=== PATIENT | male | born 1945 | race Caucasian/White ===

== ENCOUNTER 2023-01-13 08:00 | Outpatient (REF) | payer OTHER, SELFPAY ==
[2023-01-13 11:42] LABS: Anion Gap 12 (12-20); Blood Urea Nitrogen 15 mg/dL (9-16); Calcium 9.7 mg/dL (8.4-10.2); Carbon Dioxide 28 mmol/L (22-29); Chloride 105 mmol/L (96-108); Estimated Glomerular Filt Rate > 60; Glucose Random 144 mg/dL (60-115); Potassium 4.5 mmol/L (3.3-5.1); Sodium 140 mmol/L (135-145)
== END 2023-01-13 08:01 | disposition home or self-care (01) ==
LOC: HO.HHCL 08:00
PROVIDERS: Visit Provider Internal Medicine Geriatric Medicine
DX: E11.9 Type 2 diabetes mellitus without complications (principal); I10 Essential (primary) hypertension
CPT/HCPCS: 36415; 80048

== ENCOUNTER 2023-06-14 08:09 | Outpatient (REF) | payer OTHER, SELFPAY ==
[2023-06-14 14:00] LABS: Alanine Aminotransferase 19 U/L (0-40); Albumin Level 4.3 g/dL (3.5-5.0); Alkaline Phosphatase 73 U/L (39-117); Anion Gap 14 (12-20); Aspartate Amino Transferase 22 U/L (5-37); Bilirubin Total 0.8 mg/dL (0.0-1.0); Blood Urea Nitrogen 13 mg/dL (9-16); Calcium 9.7 mg/dL (8.4-10.2); Carbon Dioxide 26 mmol/L (22-29); Chloride 102 mmol/L (96-108); Estimated Glomerular Filt Rate > 60; Glucose Random 143 mg/dL (60-115); Potassium 4.1 mmol/L (3.3-5.1); Sodium 138 mmol/L (135-145); Total Protein 8.3 g/dL (6.5-8.0)
[2023-06-14 14:07] LABS: Creatinine Urine 45.97 mg/dL; Microalbum/Creatinine Ratio Ur 102.2 ug/mg cr (<30)
== END 2023-06-14 08:10 | disposition home or self-care (01) ==
LOC: HO.HHCL 08:09
PROVIDERS: Visit Provider Internal Medicine Geriatric Medicine
DX: E11.9 Type 2 diabetes mellitus without complications (principal)
CPT/HCPCS: 36415; 80053; 82043; 82570

== ENCOUNTER 2023-09-16 08:30 | Outpatient (REF) | payer OTHER, SELFPAY ==
[2023-09-16 14:46] LABS: Anion Gap 15 (12-20); Blood Urea Nitrogen 10 mg/dL (9-16); Carbon Dioxide 25 mmol/L (22-29); Chloride 104 mmol/L (96-108); Estimated Glomerular Filt Rate > 60; Glucose Random 109 mg/dL (60-115); Potassium 4.4 mmol/L (3.3-5.1); Sodium 140 mmol/L (135-145)
[2023-09-16 14:47] LABS: Cholesterol 154 mg/dL (<200); HDL Cholesterol 52 mg/dL (>40); LDL Cholesterol Calculated 84 mg/dL (<100); Triglycerides 93 mg/dL (<150)
[2023-09-16 15:27] LABS: Estimated Average Glucose 151 mg/dL; Hemoglobin A1c % 6.9 % (<6.0)
[2023-09-16 20:33] LABS: Creatinine Urine 119.26 mg/dL; Microalbum/Creatinine Ratio Ur 38.5 ug/mg cr (<30)
== END 2023-09-16 08:31 | disposition home or self-care (01) ==
LOC: HO.HHCL 08:30
PROVIDERS: Visit Provider Internal Medicine Geriatric Medicine
DX: E11.29 Type 2 diabetes mellitus with other diabetic kidney complication (principal); R80.9 Proteinuria, unspecified; I10 Essential (primary) hypertension
CPT/HCPCS: 36415; 80048; 80061; 82043; 82570; 83036

== ENCOUNTER 2024-08-03 08:10 | Outpatient (REF) | payer MEDICARE, SELFPAY ==
--- OUTSIDE RECORDS SUMMARY | 2024-08-03 08:13 | XMS_ITS | Encounter Summary ---
Author Organization [employer] Address [address] [facility] [address] [place] [address] Care Team Providers Care Gutter Mouth Cutter Name Role Phone Name, Raffi RAYO Primary Care Provider [phone] Reason for Visit * Reason Comments Med Refill Encounter Details Date Type Department Care Team ([facility] st Contact Info) Description 07/28/2024 Refill [facility] [address] [place], [place] [phone] Name, MD Raffi [address] [place] [address] Diabetes mellitus without complication (CMS/HCC); Hypertension, unspecified type Social History Tobacco Use Types Packs/Day Years Used Date Smoking Tobacco: Never Smokeless Tobacco: Never Alcohol Use Standard Drinks/Week Comments Yes 14 (1 standard drink = 0.6 oz pu re alcohol) 2/per day Depression Answer Date Recorded Patient Health Questionnaire-9 Score 4 05/08/2024 Patient Health Questionnaire-9 Score 4 05/08/2024 Last PHQ-9: Questionnaire Data Not on file 0 05/08/2024 Housing Stability Answer Date Recorded What is your housing situation today? I have ciarra sing 09/20/[address] you li ve. Do you have problems with any of the following? None of the above 09/20/2023 Food Insecurity Answer Date Recorded Within the past 12 months, y ou worried that your food would run out before you got money to buy more: Never True 09/20/2023 Within the past 12 months,th e food you bought just didn't last and you didn't have enough money to get more: Never True Transportation Answer Date Recorded In the past 12 months, has l ack of transportation kept you from medical appts, meetings, work or from getting things needed for daily living? No 09/20/2023 Utilities Answer Date Recorded In the past 12 months, has t he electric, gas, oil or water company threatened to shut off services in your home? No 09/20/2023 Depression Answer Date Recorded Patient Health Questionnaire-2 Score 3 05/08/2024 Internet Access Answer Date Recorded Internet Access Q1 No 10/31/2023 Internet Access Q2 I do not want or need it 03/2023 Sex and Gender Information Value Date Recorded Sex Assigned at Male 12/28/2021 10:17 AM EDT Legal Sex Male 10:17 AM EDT Gender Identity Male 12/28/2021 10:17 AM EDT Sexual Orientation Straight 12/28/2021 10 :17 AM EDT documented as of this encounter Plan of Treatment Upcoming Encounters Date Type Department Care Team (Late st Contact Info) Description 09/13/2024 1:00 PM EDT Office Visit [facility] [address] [place] [address] Kvng, Diana, OD [address] [place] [address] documented as of this encounter Visit Diagnoses Diagnosis Diabetes mellitus without complication (CMS/HCC) Type II or unspecified type diabetes mellitus without mention of complication, not stated as uncontrolled Hypertension, unspecified type documented in this encounter Additional Health Concerns Assessment Noted Time PHQ-9 Depression Total Score: 4 05/09/19 25 9:14 AM EDT documented as of this encounter Care Teams Gutter Mouth Cutter Relationship Specialty Start Date End Date Name, MD Raffi [address] [place] [address] PCP - General Family Medicine 06/04/15 documented as of this encounter
[2024-08-03 11:04] LABS: MANUAL DIFF FLAG NO
[2024-08-03 11:29] LABS: Basophils Absolute Auto 0.1 X10*3/uL (0.0-0.2); Basophils Percent Auto 1.2 % (0-2); Eosinophils Absolute Auto 0.5 X10*3/uL (0.0-0.4); Eosinophils Percent Auto 7.4 % (0-4); Hematocrit 41.1 % (42.0-52.0); Hemoglobin 13.3 g/dl (14.0-18.0); Imm Gran Abs Auto 0.02 X10*3/uL (0.00-0.03); Imm Gran Pct Auto 0.3 % (0.0-0.4); Lymphocytes Absolute Auto 2.9 X10*3/uL (1.2-4.9); Lymphocytes Percent Auto 42.7 % (20-40); Mean Corpuscular HGB Conc 32.4 g/dl (31.0-36.0); Mean Corpuscular Hemoglobin 26.5 pg (27.0-33.0); Mean Platelet Volume 10.5 fL (9.4-12.4); Monocytes Absolute Auto 0.7 X10*3/uL (0.1-1.2); Monocytes Percent Auto 9.9 % (2-11); Neutrophils Absolute Auto 2.6 x10*3/uL (2.0-8.3); Neutrophils Percent Auto 38.5 % (45-73); Platelet Count 220 X10*3/uL (160-400); Red Blood Count 5.01 X10*6/uL (4.60-5.80); Red Cell Distribution Width 13.8 % (11.0-16.0); White Blood Count 6.8 X10*3/uL (4.8-10.8)
[2024-08-03 12:08] LABS: Alanine Aminotransferase 14 U/L (0-40); Alkaline Phosphatase 72 U/L (39-117); Anion Gap 11 (12-20); Aspartate Amino Transferase 24 U/L (5-37); Bilirubin Total 0.8 mg/dL (0.0-1.0); Blood Urea Nitrogen 18 mg/dL (9-16); Calcium 9.7 mg/dL (8.4-10.2); Carbon Dioxide 26 mmol/L (22-29); Chloride 109 mmol/L (96-108); Cholesterol 135 mg/dL (<200); Estimated Glomerular Filt Rate > 60; Glucose Random 117 mg/dL (60-115); HDL Cholesterol 48 mg/dL (>40); LDL Cholesterol Calculated 71 mg/dL (<100); Potassium 4.4 mmol/L (3.3-5.1); Sodium 142 mmol/L (135-145); Total Protein 7.3 g/dL (6.5-8.0); Triglycerides 81 mg/dL (<150)
[2024-08-03 12:15] LABS: Creatinine Urine 57.68 mg/dL; Microalbum/Creatinine Ratio Ur 20.8 ug/mg cr (<30)
== END 2024-08-03 08:11 | disposition home or self-care (01) ==
LOC: HO.HHCL 08:10
PROVIDERS: Visit Provider Internal Medicine Geriatric Medicine
DX: I10 Essential (primary) hypertension (principal); E11.29 Type 2 diabetes mellitus with other diabetic kidney complication; R80.9 Proteinuria, unspecified
CPT/HCPCS: 36415; 80053; 80061; 82043; 82570; 85025

== ENCOUNTER 2024-11-14 14:29 | Outpatient (REF) | payer MEDICARE, SELFPAY ==
--- OUTSIDE RECORDS SUMMARY | 2024-11-14 14:00 | XMS_ITS | Encounter Summary ---
Author Organization [employer] Address [address] [facility] 7[address] [place] [address] Care Team Providers Care Makeup Artistry Instructor Name Role Phone Name, Raffi RAYO Primary Care Provider [phone] Reason for Visit * Reason Comments Diabetes Encounter Details Date Type Department Care Team ([facility] st Contact Info) Description 11/14/2024 2:00 PM EDT Office Visit [facility] MEDIC[facility] [address] [place], [place] [phone] Name, MD Raffi [address] [place] [address] Type 2 diabetes mellitus with proteinuria (CMS/HCC) (CMS/HCC) (Primary Dx); Need for hepatitis C screening test Social History Tobacco Use Types Packs/Day Years Used Date Smoking Tobacco: Never Smokeless Tobacco: Never Tobacco Cessation:Counseling Given: Not Answered Alcohol Use Standard Drinks/Week Comments Yes 14 (1 standard drink = 0.6 oz pu re alcohol) 2/per day Depression Answer Date Recorded Patient Health Questionnaire-9 Score 4 05/08/2024 Patient Health Questionnaire-9 Score 4 05/08/2024 Last PHQ-9: Questionnaire Data Not on file 0 05/08/2024 Housing Stability Answer Date Recorded What is your housing situation today? I have ciarra chester 11/14/[address] you li ve. Do you have problems with any of the following? None of the above 11/14/2024 Food Insecurity Answer Date Recorded Within the past 12 months, y ou worried that your food would run out before you got money to buy more: Never True 11/14/2024 Within the past 12 months,th e food you bought just didn't last and you didn't have enough money to get more: Never True Transportation Answer Date Recorded In the past 12 months, has l ack of transportation kept you from medical appts, meetings, work or from getting things needed for daily living? No 11/14/2024 Utilities Answer Date Recorded In the past 12 months, has t he electric, gas, oil or water company threatened to shut off services in your home? No 11/14/2024 Depression Answer Date Recorded Patient Health Questionnaire-2 Score 3 05/08/2024 Internet Access Answer Date Recorded Internet Access Q1 Yes 11/14/2024 Internet Access Q2 Not on file 11/14/2024 Sex and Gender Information Value Date Recorded Sex Assigned at Male 12/28/2021 10:17 AM EDT Legal Sex Male 10:17 AM EDT Gender Identity Male 12/28/2021 10:17 AM EDT Sexual Orientation Straight 12/28/2021 10 :17 AM EDT documented as of this encounter Last Filed Vital Signs Vital Sign Reading Time Taken Comments Blood Pressure 112/58 11/14/2024 2:14 PM EDT Pulse 64 11/14/2024 2:14 PM EDT Temperature 36.1 C (97 F) 11/14/2024 2:14 PM EDT Respiratory Rate 12 11/14/2024 2:14 PM EDT Oxygen Saturation 98% 11/14/2024 2:14 PM EDT Inhaled Oxygen Concentration - - Weight 70.8 kg (156 lb) 11/14/2024 2:14 PM EDT Height 167.6 cm (5' 6 ) 11/14/2024 2:14 PM EDT Body Mass Index 25.18 11/14/2024 2:14 PM EDT documented in this encounter Progress Notes * Raffi Knight, - 11/14/2024 2:00 PM EDT Subjective Patient ID: Mati Toledo is a 79 y.o. male who presents for Diabetes. Patient comes for a follow-up visit and is doing well. He did not bring his glucose meter but his hemoglobin A1c is excellent. Blood pressure is well- controlled. He brings record of blood pressure athome that also shows good control. He had a visiting nurse go to his house and he had a normal minicog testing. We discussed the favorable results of the blood work he had done back in July. He has been more active around the house and the yard and he is congratulated and encouraged to continue. Review of Systems Constitutional: Negative for chills, fatigue and fever. HENT: Negative for sore throat. Respiratory: Negative for cough, chest tightness and shortness of breath. Cardiovascular: Negative for chest pain, palpitations and leg swelling. Gastrointestinal: Negative for abdominal pain and blood in stool. Objective Vitals: 11/14/24 1414 BP: 112/58 BP Location: Left arm Patient Position: Sitting BP Cuff Size: Adult Pulse: 64 Resp: 12 Temp: 97 ??F (36.1 ??C) TempSrc: Temporal SpO2: 98% Weight: 156 lb (70.8 kg) Height: 5' 6 (1.676 m) Physical Exam Constitutional: Appearance: Normal appearance. Cardiovascular: Rate and Rhythm: Normal rate and regular rhythm. Heart sounds: No murmur heard. Pulmonary: Effort: Pulmonary effort is normal. No respiratory distress. Breath sounds: No wheezing, rhonchi or rales. Abdominal: Palpations: Abdomen is soft. Tenderness: There is no abdominal tenderness. Musculoskeletal: Right lower leg: No edema. Left lower leg: No edema. Neurological: Mental Status: He is alert. Latest Reference Range & Units 08/03/24 08:12 Glucose 60 - 115 mg/dL 117 (H) Urea Nitrogen (BUN) 9 - 16 mg/dL 18 (H) Creatinine, Serum 0.5 - 1.4 mg/dL 1.09 Sodium 135 - 145 mmol/L 142 Potassium 3.3 - 5.1 mmol/L 4.4 Chloride 96 - 108 mmol/L 109 (H) Carbon Dioxide 22 - 29 mmol/L 26 Calcium 8.4 - 10.2 mg/dL 9.7 Albumin Level 3.5 - 5.0 g/dL 4.0 Bilirubin, Total 0.0 - 1.0 mg/dL 0.8 AST 5 - 37 U/L 24 ALT 0 - 40 U/L 14 Anion Gap 12 - 20 11 (L) Total Protein 6.5 - 8.0 g/dL 7.3 Cholesterol <200 mg/dL 135 HDL Cholesterol >40 mg/dL 48 LDL Cholesterol Calculated <100 mg/dL 71 Triglycerides <150 mg/dL 81 Red Blood Count 4.60 - 5.80 X10*6/uL 5.01 Hemoglobin 14.0 - 18.0 g/dl 13.3 (L) Hematocrit 42.0 - 52.0 % 41.1 (L) Mean Corpuscular Volume 80.0 - 98.0 fL 82.0 Mean Corpuscular Hemoglobin 27.0 - 33.0 pg 26.5 (L) Mean Corpuscular HGB Conc 31.0 - 36.0 g/dl 32.4 Red Cell Distribution Width 11.0 - 16.0 % 13.8 Platelet Count 160 - 400 X10*3/uL 220 Eosinophils Percent Auto 0 - 4 % 7.4 (H) Lymphocytes Absolute Auto 1.2 - 4.9 X10*3/uL 2.9 Basophils Absolute Auto 0.0 - 0.2 X10*3/uL 0.1 Monocytes Absolute Auto 0.1 - 1.2 X10*3/uL 0.7 Neutrophils Absolute Auto 2.0 - 8.3 x10*3/uL 2.6 Neutrophils Percent Auto 45 - 73 % 38.5 (L) Basophils Percent Auto 0 - 2 % 1.2 Eosinophils Absolute Auto 0.0 - 0.4 X10*3/uL 0.5 (H) Lymphocytes Percent Auto 20 - 40 % 42.7 (H) Monocytes Percent Auto 2 - 11 % 9.9 Imm Gran Abs Auto 0.00 - 0.03 X10*3/uL 0.02 Imm Gran Pct Auto 0.0 - 0.4 % 0.3 Microalbumin Urine mg/L 12.0 Alkaline Phosphatase 39 - 117 U/L 72 Creatinine, Urine mg/dL 57.68 Estimated Glomerular Filt Rate >60 Mean Platelet Volume 9.4 - 12.4 fL 10.5 Microalbum Creatinine Ratio Ur <30 ug/mg cr 20.8 NRBC Abs Auto 0.0 - 0.012 X10*3/uL 0.000 NRBC Pct Auto 0.0 - 0.2 /100WBC 0.0 White Blood Count 4.8 - 10.8 X10*3/uL 6.8 (H): Data is abnormally high (L): Data is abnormally low Lab Results Component Value Date HGBA1C 6.3 (A) 11/14/2024 HGBA1C 6.8 (A) 05/08/2024 HGBA1C 6.9 (H) 09/16/2023 HGBA1C 7.8 (A) 04/07/2023 HGBA1C 7.4 (A) 12/30/2022 HGBA1C 7.2 (A) 09/02/2022 HGBA1C 7.1 (A) 03/02/2022 Assessment/Plan Diagnoses and all orders for this visit: Type 2 diabetes mellitus with proteinuria (CMS/HCC) ([facility]) Comments: Well controlled, continue current meds, avoid sweets, regular physical activity, check blood work listed below. I recommended to reschedule his appt for eye exam. Orders: - POCT Glucose - POCT Hgb A1c Need for hepatitis C screening test - Hepatitis C Antibody with Reflex to HCV, RNA, Quantitative, Real-Time PCR; Future documented in this encounter Plan of Treatment Scheduled Orders Name Type Priority Associated Diagnoses Orde r Schedule Hepatitis C Antibody with Reflex to HCV, RNA, Quantitative, Real-Time PCR Lab Routine Need for hepatitis C screening test Expected: 11/14/2024, Expires: 11/14/2025 documented as of this encounter Procedures Procedure Name Priority Date/Time Associated Diagnosis Comments POCT GLYCATED HEMOGLOBIN, TOTAL Routine 11/14/2024 2:16 PM EDT Type 2 diabetes mellitus with proteinuria (CMS/HCC) ([facility]) POCT GLUCOSE Routine 11/14/2024 2:16 PM EDT Type 2 diabetes mellitus with proteinuria (CMS/HCC) ([facility]) documented in this encounter Results * (ABNORMAL) POCT Hgb A1c (11/14/2024 2:16 PM EDT) Hemoglobin A1C 6.3(A) 4.0 - 5.7 % QC Media Lot # [id number] Lot# Expiration Date [id number] Blood 11/14/2024 2:16 PM EDT Raffi Knight MD POINT OF CARE TEST ENTER/EDIT OR DERABLES Final Result * POCT Glucose (11/14/2024 2:16 PM EDT) Glucose Blood, POC 116 60 - 200 mg/dL QC Media Lot # [id number] Lot# Expiration Date Blood Capillary blood specimen / Unknown 11/14/2024 2:16 PM EDT Raffi Knight MD POINT OF CARE TEST ENTER/EDIT OR DERABLES Final Result documented in this encounter Visit Diagnoses Diagnosis Type 2 diabetes mellitus with proteinuria (CMS/HCC) (CMS/HCC)- Primary Need for hepatitis C screening test Special screening examination for other specified viral diseases documented in this encounter Additional Health Concerns Assessment Noted Time PHQ-9 Depression Total Score: 4 05/09/19 25 9:14 AM EDT documented as of this encounter Care Teams Makeup Artistry Instructor Relationship Specialty Start Date End Date Name, MD Raffi [address] [place] [address] PCP - General Family Medicine 06/04/15 documented as of this encounter
--- OUTSIDE RECORDS SUMMARY | 2024-11-14 18:13 | XMS_ITS | Encounter Summary ---
Author Organization [employer] Address [address] [facility] [address]t [place] [address] Care Team Providers Care Hyperbaric Technician Name Role Phone Name, Raffi RAYO Primary Care Provider [phone] Reason for Visit * Reason Comments Med Refill Encounter Details Date Type Department Care Team ([facility] st Contact Info) Description 07/07/2023 Refill [facility] [address] [place], [place] [phone] Name, MD Raffi [address] [place] [address] Diabetes mellitus without complication ([facility]/HCC) Social History Tobacco Use Types Packs/Day Years Used Date Smoking Tobacco: Never Smokeless Tobacco: Never Alcohol Use Standard Drinks/Week Comments Yes 14 (1 standard drink = 0.6 oz pu re alcohol) 2/per day Depression Answer Date Recorded Patient Health Questionnaire-9 Score 0 04/07/2023 Patient Health Questionnaire-9 Score 0 04/07/2023 Last PHQ-9: Questionnaire Data Not on file 0 04/07/2023 Housing Stability Answer Date Recorded What is your housing situation today? I have ciarra chester 12/30/[address] you li ve. Do you have problems with any of the following? None of the above 12/30/2022 Food Insecurity Answer Date Recorded Within the past 12 months, y ou worried that your food would run out before you got money to buy more: Never True 12/30/2022 Within the past 12 months,th e food you bought just didn't last and you didn't have enough money to get more: Never True 03/2022 Transportation Answer Date Recorded In the past 12 months, has l ack of transportation kept you from medical appts, meetings, work or from getting things needed for daily living? No 12/30/2022 Utilities Answer Date Recorded In the past 12 months, has t he electric, gas, oil or water company threatened to shut off services in your home? No 12/30/2022 Depression Answer Date Recorded Patient Health Questionnaire-2 Score 0 04/07/2023 Sex and Gender Information Value Date Recorded Sex Assigned at Male 12/28/2021 10:17 AM EDT Legal Sex Male 10:17 AM EDT Gender Identity Male 12/28/2021 10:17 AM EDT Sexual Orientation Straight 12/28/2021 10 :17 AM EDT documented as of this encounter Plan of Treatment Not on file documented as of this encounter Visit Diagnoses Diagnosis Diabetes mellitus without complication (CMS/HCC) Type II or unspecified type diabetes mellitus without mention of complication, not stated as uncontrolled documented in this encounter Additional Health Concerns Assessment Noted Time PHQ-9 Depression Total Score: 0 04/07/19 24 11:13 AM EST documented as of this encounter Care Teams Hyperbaric Technician Relationship Specialty Start Date End Date Name, MD Raffi [address] [place] [address] PCP - General Family Medicine 06/04/15 documented as of this encounter
--- OUTSIDE RECORDS SUMMARY | 2024-11-14 18:13 | XMS_ITS | Encounter Summary ---
Author Organization [employer] Address [address] [facility] [address] [place] [address] Care Team Providers Care Recreation Establishment Manager Name Role Phone Name, Raffi RAYO Primary Care Provider [phone] Reason for Visit * Reason Comments Med Refill Encounter Details Date Type Department Care Team ([facility] st Contact Info) Description 02/11/2024 Refill [facility] MED[facility] [address] [place], [place] [phone] Name, MD Raffi [address] [place] [address] Diabetes mellitus without complication (CMS/HCC); Hypertension, unspecified [...] is your housing situation today? I have ciarradacia chester 09/20/[address] you li [...] Recorded Patient Health Questionnaire-2 Score 0 04/07/2023 Internet Access Answer Date Recorded Internet Access [...] Visit Diagnoses Diagnosis Diabetes mellitus without complication (CMS/[facility]) Type II or unspecified type diabetes mellitus without mention of complication, not stated as uncontrolled Hypertension, unspecified type documented in this encounter Additional Health Concerns Assessment Noted Time PHQ-9 Depression Total Score: 0 04/07/19 24 11:13 AM EST documented as of this encounter Care Teams Recreation Establishment Manager Relationship Specialty Start Date End Date Name, MD Raffi [address] [place] [address] PCP - General Family Medicine 06/04/15 documented as of this encounter
--- OUTSIDE RECORDS SUMMARY | 2024-11-14 18:13 | XMS_ITS | Encounter Summary ---
Author Organization [employer] Address [address] [facility] [address] [place] [address] Care Team Providers Care Line Construction Superintendent Name Role Phone Name, Raffi RAYO Primary Care Provider [phone] Encounter Details Date Type Department Care Team (Latest Contact Info) Description 11/14/2024 Travel Social History Tobacco Use Types Packs/Day Years [...] documented as of this encounter Visit Diagnoses Not on filedocumented in this encounter Additional Health Concerns Assessment Noted Time PHQ-9 Depression Total Score: 4 05/09/19 25 9:14 AM EDT documented as of this encounter Care Teams Line Construction Superintendent Relationship Specialty Start Date End Date Name, MD Raffi [address] [place] [address] PCP - General Family Medicine 06/04/15 documented as of this encounter
--- OUTSIDE RECORDS SUMMARY | 2024-11-14 18:13 | XMS_ITS | Encounter Summary ---
Author Organization [employer] Address [address] [facility] [address] [place] [address] Care Team Providers Care Converter Operator Name Role Phone Name, Raffi RAYO Primary Care Provider [phone] Reason for Visit * Reason Onset Date Comments chart prep 11/13/2024 Encounter Details Date Type Department Care Team ([facility] st Contact Info) Description 11/13/2024 Telephone [facility] [address] [place] [address] Marylou Pelletier MA chart prep Social History Tobacco Use Types Packs/Day Years [...] AM EDT documented as of this encounter Miscellaneous Notes * Telephone Encounter - Marylou Pelletier MA - 11/13/2024 1:10 PM EDT Chart Prep Labs: done Images: not done Referrals: not applicable Vaccines due: Covid, Flu, RSV, and Zoster Screenings: eye exam Overdue care gaps: A1c, Glucose, SBIRT, SDOH, and Oral health screening documented in this encounter Plan of Treatment Not on file documented as of this encounter Visit Diagnoses Not on filedocumented in this encounter Additional Health Concerns Assessment Noted Time PHQ-9 Depression Total Score: 4 05/09/19 25 9:14 AM EDT documented as of this encounter Care Teams Converter Operator Relationship Specialty Start Date End Date Name, MD Raffi [address] [place] [address] PCP - General Family Medicine 06/04/15 documented as of this encounter
--- OUTSIDE RECORDS SUMMARY | 2024-11-14 18:13 | XMS_ITS | Clinical Summary ---
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 Name Role Phone Name, Raffi RAYO Primary Care Provider [phone] Allergies No known active allergies Medications Alcohol Swabs (SM Alcohol Prep) 70 % pads USE TWICE DAILY Active sildenafil (Viagra) 50 MG tabletIndication s:Hypertension, unspecified type take 1 tablet by oral route every day as needed approximately 1 hour before sexual activity 10 tablet 03/02/19 23 Active fluticasone (Flonase) 50 MCG/ACT nasal spray USE 2 SPRAYS IN EACH NOSTRIL IN THE MORNING 48 g 04/07/19 24 Active loratadine (Claritin) 10 MG tabletIndication s:Allergic rhinitis, unspecified seasonality, unspecified trigger TAKE 1 TABLET BY MOUTH EVERY DAY NEEDED FOR ALLERGIES 90 tablet 03/13/19 25 Active acetaminophen (Tylenol) 500 MG tablet Take 2 tablets (1,000 mg) by mouth every 6 (six) hours if needed for moderate pain or fever for up to 25 doses. 40 tablet 03/16/19 25 Active TRUEplus Lancets 33G miscIndications: Type 2 diabetes mellitus with proteinuria (CMS/HCC) ([facility]) TEST BLOOD SUGAR ONCE DAILY 100 each 3 05/10/19 25 Active FREESTYLE LITE test stripIndications :Type 2 diabetes mellitus with proteinuria (CMS/HCC) ([facility]) TEST BLOOD SUGAR ONCE DAILY DIRECTED 100 strip 3 05/10/19 25 Active losartan (Cozaar) 50 MG tablet TAKE 1 TABLET BY MOUTH EVERY MORNING 90 tablet 1 07/04/19 25 Active simvastatin (Zocor) 40 MG tabletIndication s:Diabetes mellitus without complication (CMS/HCC) TAKE 1 TABLET BY MOUTH AT BEDTIME 90 tablet 1 07/31/19 25 Active amLODIPine (Norvasc) 10 MG tabletIndication s:Hypertension, unspecified type TAKE 1 TABLET BY MOUTH AT BEDTIME 90 tablet 1 07/31/19 25 Active Aspirin Low Dose 81 MG EC tabletIndication s:Hypertension, unspecified type TAKE 1 TABLET BY MOUTH AT BEDTIME 90 tablet 1 08/02/19 25 Active cloNIDine (Catapres) 0.1 MG tabletIndication s:Hypertension, unspecified type TAKE 1 TABLET BY MOUTH TWICE DAILY IN THE MORNING AND AT BEDTIME 180 tablet 1 08/02/19 25 Active metoprolol succinate XL (Toprol-XL) 100 MG 24 hr tabletIndication s:Diabetes mellitus without complication (CMS/HCC) TAKE 2 TABLETS BY MOUTH ONCE DAILY IN THE MORNING 180 tablet 1 08/02/19 25 Active Synjardy 12.5-500 MGIndications:Di abetes mellitus without complication (CMS/HCC) TAKE 1 TABLET BY MOUTH TWICE DAILY IN THE MORNING AND IN THE EVENING WITH FOOD 180 tablet 09/28/19 25 Active Active Problems Problem Noted Date Diagnosed Date Type 2 diabetes mellitus with proteinuria (CMS/H CC) 09/20/2023 Hypertrophic toenail 12/30/2022 Bunion of great toe 12/30/2022 Erectile dysfunction of organic origin Pseudogout 09/14/2011 Hypertension 08/10/2011 Pure hypercholesterolemia 08/10/2011 Resolved Problems Problem Noted Date Diagnosed Date Resolved Date Diabetes mellitus without complication 02/25/2022 09/20/2023 Hyperuricemia 02/02/2012 09/02/2022 Normocytic anemia 02/02/2012 09/02/2022 Encounters Date Type Department Care Team Description 11/14/2024 2:00 PM EDT Office Visit [facility] [address] [place] [address] Name, MD Raffi Type 2 diabetes mellitus with proteinuria (CMS/HCC) (CMS/HCC) (Primary Dx); Need for hepatitis C screening test 11/14/2024 Travel 11/13/[address] [facility] [address] [place] [address] Marylou Pelletier MA chart prep 09/27/[address] [facility] [address] [facility] [place] [address] Name, MD Raffi Diabetes mellitus without complication ([facility]) 09/17/[address] [facility] [address] [facility] [place] [address] Name, MD Raffi Call Back Request 09/13/[address] [facility] [address] [place] [address] Diana Calderon OD from Last 3 Months Immunizations Immunization Administration Dates Next Due Hep A, Adult 09/14/2011,03/18/2011 Hep B, adult 04/03/2012,05/27/2011,03/18/2011 Influenza High-dose Quadriva lent Preservative Free 12/30/2022 Influenza injectable quadriv alent IIV4 with preservative 03/02/2022,12/15/2015 Influenza injectable quadriv alent preservative free 01/19/2021 Influenza, High Dose Seasona l, Preservative Free 11/18/2017 Influenza, IIV3, injectable 02/04/2009 Influenza, Split (incl. liban fied surface antigen) 02/02/2012 Influenza, seasonal, injecta ble, preservative free 05/08/2024 Pneumococcal Conjugate PCV 13 07/22/2017 Pneumococcal Conjugate PCV 20 06/17/2023 Pneumococcal Polysaccharide PPSV23 07/18/2006 TD (adult), 2 Lf tetanus tox oid, preservative free, adsorbed 07/18/2006 Tdap 04/07/2023,07/11/2012 Zoster, live 04/03/2012 Social History Tobacco Use Types Packs/Day Years [...] your housing situation today? I have ciarra nemo 11/14/[address] you li [...] Orientation Straight 12/28/2021 10 :17 AM EDT Last Filed Vital Signs Vital Sign Reading [...] Mass Index 25.18 11/14/2024 2:14 PM EDT Plan of Treatment Health Maintenance Due Date Last Done Comments Eye Exam 1955 Hepatitis C Screening 1963 Zoster Vaccines (2 of 3) 05/29/2012 04/03/2012 RSV Patients and Patients Aged 60 years or older (1 - 1-dose 75+ series) 2021 COVID-19 Vaccine ( season) 2024 12/20/2020, 06/05/2020, 05/09/2020 Influenza Vaccine (#1) 2024 , 12/30/2022, 03/02/2022, Additional history exists Depression Screening 05/08/2025 05/08/2024, 05/09/19 25 Diabetes: Foot Exam 05/08/2025 05/08/2024, 05/08/2024, 05/08/2024, Additional history exists Diabetes: Hemoglobin A1C 05/14/2025 025, 05/08/2024, 09/16/2023, Additional history exists Lipid Panel 08/03/2025 08/03/2024, 08/28, 03/10/2022, Additional history exists Alcohol/Substance Use Screening 11/14/2025 11/14/2024 SDOH Screening 11/14/2025 11/14/2024 Tobacco Screening 11/14/2025 11/14/2024 DTaP/Tdap/Td Vaccines (3 - Td or Tdap) 04/07/2033 04/07/2023, 07/11/2012, 07/18/2006 Hepatitis A Vaccines Aged Out 09/14/2011, 03/18/19 12 No longer eligible based on patient's age to complete this topic Hepatitis B Vaccines Completed 04/03/2012, 05/27/2011, 03/18/2011 Pneumococcal Vaccine: 50+ Years Completed 06/17/2023, 07/22/2017, 07/18/2006 HIB Vaccines Aged Out No longer eligi ble based on patient's age to complete this topic HPV Vaccines Aged Out No longer eligi ble based on patient's age to complete this topic IPV Vaccines Aged Out No longer eligi ble based on patient's age to complete this topic Meningococcal B Vaccine Aged Out No l onger eligible based on patient's age to complete this topic Meningococcal Vaccine Aged Out No jose yeison eligible based on patient's age to complete this topic RSV under 20 months Aged Out No longe r eligible based on patient's age to complete this topic Rotavirus Vaccines Aged Out No longer eligible based on patient's age to complete this topic Procedures Procedure Name Priority Date/Time Associated Diagnosis Comments POCT GLYCATED HEMOGLOBIN, TOTAL Routine 11/14/2024 2:16 PM EDT Type 2 diabetes mellitus with proteinuria ([facility]/HCC) ([facility]) POCT GLUCOSE Routine 11/14/2024 2:16 PM EDT Type 2 diabetes mellitus with proteinuria ([facility]/HCC) ([facility]) LIPID PANEL, STANDARD Routine 08/03/2024 8:12 AM EDT Type 2 diabetes mellitus with proteinuria ([facility]/HCC) ([facility]) Hypertension, unspecified type from Last 3 Months or Most Recently Relevant to Health Maintenance Results * (ABNORMAL) POCT Hgb A1c (11/14/2024 2:16 PM EDT) Hemoglobin A1C 6.3(A) 4.0 - 5.7 % QC Media Lot # [id number] Lot# Expiration Date [id number] Blood 11/14/2024 2:16 PM EDT us Raffi Knight MD POINT OF CARE TEST ENTER/EDIT OR DERABLES Final Result * POCT Glucose (11/14/2024 2:16 PM EDT) Glucose Blood, POC 116 60 - 200 mg/dL QC Media Lot # [id number] Lot# Expiration Date [id number] Blood Capillary blood specimen / Unknown 11/14/2024 2:16 PM EDT us Raffi Knight MD POINT OF CARE TEST ENTER/EDIT OR DERABLES Final Result * Lipid Panel, Standard (08/03/2024 8:12 AM EDT) Triglycerides 81 <150 mg/dL [facility] Comment:Desirable Triglyceri de: less than 150 mg/dLBorderline High Triglyceride 150-199 mg/dLHigh Triglyceride: 200-499 mg/dLVery High Triglyceride: greater than or equal to 5OO mg/dL Cholesterol 135 <200 mg/dL [facility] Comment:Desirable Cholestero l: less than 200 mg/dLBorderline High Cholesterol: 200-239 mg/dLHigh Cholesterol: greater than 239 mg/dL LDL Cholesterol Calculated 71 <100 mg/dL [facility] Comment:Desirable LDL: less than 100 mg/dLNear Optimal/Above Optimal LDL: 110- 129 mg/dLBorderline High LDL: 130-159 mg/dLHigh LDL: 160-189 mg/dLVery High LDL: greater than or equal to 190 mg/dL HDL Cholesterol 48 >40 mg/dL [facility] Comment:Desirable HDL: great er than 40 mg/dL Note: This HDL assay may give artificially low results in patients with liver disease. Blood Venous blood specimen / Unknown 08/03/2024 8:12 AM EDT 08/03/2024 10:59 AM EDT us Raffi Name LAB BLOOD ORDERABLES Final Resul t Performing Organization Address City/State/[facility] Co de Phone Number [facility] [address] [place] [phone] from Last 3 Months or Most Recently Relevant to Health Maintenance Insurance * Guarantor: Mati Mccarthy Account Type Relation to Patient Date of Phone Billing Address Personal/Family Self 1945 [address] [place] [address] [facility] MEDICARE ADVANTAGE * Guarantor: Mati Mccarthy Account Type Relation to Patient Date of Phone Billing Address Personal/Family Self [address] [place] [address] * Guarantor: Mati Mccarthy Account Type Relation to Patient Date of Phone Billing Address Personal/Family Self [address] [place] [address] * Guarantor: Mati Mccarthy Account Type Relation to Patient Date of Phone Billing Address Personal/Family Self [address] [place] [address] Care Teams Pantograph Machine Operator Relationship Specialty Start Date End Date Name, MD Raffi [address] [place] [phone] PCP - General Family Medicine 06/04/15
[2024-11-15 05:54] LABS: ~HepC Num1 0.07 S/CO (0.00-0.79); ~Hepatitis C Antibody Nonreactive (Nonreactive)
== END 2024-11-14 14:30 | disposition home or self-care (01) ==
LOC: HO.HHCL 14:29
PROVIDERS: PCP Internal Medicine Geriatric Medicine; Visit Provider Internal Medicine Geriatric Medicine
DX: Z11.59 Encounter for screening for other viral diseases (principal)
CPT/HCPCS: 36415; 86803